=== PATIENT | female | born 1955 | race Caucasian/White ===

== ENCOUNTER 2024-01-25 19:45 | Inpatient (IN) | payer MEDICARE ==
[~2024-01-25] VITALS: Ht 149.9 cm; Wt 35.8 kg
[2024-01-25] MEDS ORDERED: ACET-2154 PO (20:12)
[2024-01-25] MEDS ORDERED: TEMA7.5C PO (20:12)
[2024-01-25] MEDS ORDERED: CLON0.5T4 PO (20:12)
[2024-01-25] MEDS ORDERED: BISA10SU61 RC (20:12)
[2024-01-25] MEDS ORDERED: POTA10CA43 PO (20:12)
[2024-01-25] MEDS ORDERED: FURO40TA5 PO (20:12)
[2024-01-25] MEDS ORDERED: CALC-343 PO (20:12)
[2024-01-25] MEDS ORDERED: DOCU-141 PO (20:12)
[2024-01-25] MEDS ORDERED: [UNRECOGNIZED DRUG - OTHER] PO (20:12)
[2024-01-25] MEDS ORDERED: NA P133E RC (20:12)
[2024-01-25] MEDS ORDERED: CRAN450T9 PO (20:12)
[2024-01-25] MEDS ORDERED: FLUV150C2 PO (20:12)
[2024-01-25] MEDS ORDERED: MAG30ORA PO (20:12)
[2024-01-25] MEDS ORDERED: INSU3INS6 SQ (20:12)
[2024-01-25] MEDS ORDERED: QUET25TA PO (20:12)
[2024-01-25] MEDS ORDERED: MULT-225 PO (20:12)
[2024-01-25] MEDS ORDERED: MEGE20TA3 PO (20:12)
[2024-01-25] MEDS ORDERED: MAGN400O6 PO (20:12)
[2024-01-25] MEDS: IV NORMAL SALINE 500 ML BAG IV ONE ×2 (20:17→20:45)
[2024-01-25 20:19] LABS: BASOPHILS # (AUTO) 0.1 K/UL (0.0-0.2); BASOPHILS % (AUTO) 0.6 % (0.0-2.0); EOSINOPHILS % (AUTO) 0.1 % (0.0-7.0); HEMOGLOBIN 14.5 g/dL (10.9-14.3); LYMPHOCYTES # (AUTO) 2.5 K/uL (0.8-4.8); MEAN CORPUSCULAR HEMOGLOBIN 32.2 uug (24.7-32.8); MEAN CORPUSCULAR HGB CONC 32 g/dL (32.3-35.6); MEAN CORPUSCULAR VOLUME 100.3 fL (75.5-95.3); MONOCYTES # (AUTO) 0.6 K/uL (0.1-1.30); MONOCYTES % (AUTO) 4.6 % (0.0-11.0); NEUTROPHILS # (AUTO) 9.5 K/uL (1.8-8.9); NEUTROPHILS % (AUTO) 74.7 % (38.5-71.5); PLATELET COUNT (AUTO) 480 K/uL (179-408); RED BLOOD CELL COUNT(AUTO) 4.48 MIL/uL (3.63-4.92); RED CELL DISTRIBUTION WIDTH 15.6 % (12.3-17.7); WHITE BLOOD COUNT (AUTO) 12.7 K/uL (3.8-11.8)
[2024-01-25 20:22] LABS: DIFFERENTIAL COMMENT 1
[2024-01-25 20:27] LABS: ALBUMIN 3.6 g/dL (3.4-5.0); BILIRUBIN,TOTAL 0.4 mg/dL (0.2-1.0); CALCIUM 11.4 mg/dL (8.5-10.1); CREATININE 1.7 mg/dL (0.6-1.3); MAGNESIUM 2.8 mg/dL (1.8-2.4); POTASSIUM 3.2 mmol/L (3.5-5.1); TOTAL PROTEIN, SERUM 8.4 g/dL (6.4-8.2)
[2024-01-25] MEDS ORDERED: IV D5/ 0.9% NACL 1,000 ML IV PRN (20:45)
[2024-01-25] MEDS: MAGNESIUM SULFATE/D5W 100 ML IV SCH (20:45)
[2024-01-25] MEDS ORDERED: INSULIN REGULAR, HUMAN 100 UNIT in IV NORMAL SALINE 100 ML IV PRN (20:45)
[2024-01-25] MEDS ORDERED: IV 0.9% SODIUM CHLORID+ 20 KCL 1,000 ML IV PRN (20:45)
[2024-01-25] MEDS ORDERED: IV NS 1000 ML 1,000 ML IV PRN (20:45)
[2024-01-25 20:54] LABS: SITE, VBG VBG - N/A; VBG AaDO2 95.4 mmHg; VBG HCO3 12.9 mmol/L (22-27); VBG MetHb 0.1 % (0.0-0.5); VBG PCO2 24.6 mmHg (38.0-51.0); VBG PH 7.336 (7.310-7.450); VBG PO2 79.9 mmHg (25.0-35.0); VBG TOTAL HEMOGLOBIN 14.2 G/dL (12.0-16.0)
[2024-01-25 21:18] LABS: CALCIUM 9.8 mg/dL (8.5-10.1); CREATININE 1.6 mg/dL (0.6-1.3); MAGNESIUM 2.4 mg/dL (1.8-2.4); PHOSPHOROUS 4.7 mg/dL (2.5-4.9)
[2024-01-25] MEDS ORDERED: MAGNESIUM HYDROXIDE 30 ML LIQUID UDC PO PRN (21:45)
[2024-01-25] MEDS ORDERED: IV 1/2NS 1000 ML 1,000 ML IV PRN (21:45)
[2024-01-25] MEDS ORDERED: REMEDY ESSENTIAL ZINC PASTE 113 GM TP PRN (21:45)
[2024-01-25] MEDS ORDERED: HYDROCODONE/APAP 5-325MG TABLET PO PRN (21:45)
[2024-01-25 22:46] LABS: *BILIRUBIN,URIN NEGATIVE (NEGATIVE); *CLARITY,URINE CLEAR (CLEAR); *COLOR,URINE YELLOW (YELLOW); *KETONES,URINE 1+ (NEGATIVE); *PROTEIN,URINE 1+ (NEGATIVE); *UROBILINOGEN,URINE 0.2 E.U./dl (NORMAL); LEUKOCYTE ESTERASE ,URINE NEGATIVE (NEGATIVE); NITRITE, URINE NEGATIVE (NEGATIVE); PH,URINE 5.5 (5.0-8.0); UGLUCOSE 2+ (NEGATIVE)
[2024-01-25 22:48] LABS: *BLOOD, URINE TRACE (NEGATIVE)
[2024-01-25 23:28] LABS: CALCIUM 9.9 mg/dL (8.5-10.1); CREATININE 1.4 mg/dL (0.6-1.3); MAGNESIUM 2.4 mg/dL (1.8-2.4); PHOSPHOROUS 4.2 mg/dL (2.5-4.9); POTASSIUM 3.1 mmol/L (3.5-5.1)
[2024-01-26] VITALS (33 sets, daily range): BP systolic 103–158; BP diastolic 68–101; TEMP 98–100; O2SAT 92–98
[2024-01-26 00:25] LABS: BACTERIA,URINE NONE SEEN /HPF (NONE SEEN); MUCUS,URINE MODERATE /LPF (0-FEW); RBC,URINE 0-3 /HPF (0-3); SQUAMOUS EPITHELIAL CELL,UR FEW /HPF (NONE SEEN); URIC ACID CRYSTALS,URINE MANY /HPF (NONE SEEN); WBC,URINE 0-3 /HPF (0-3)
[2024-01-26] MEDS ORDERED: INSULIN REGULAR, HUMAN 300 UNIT/3 ML VIAL ONE (00:32)
[2024-01-26] MEDS: INSULIN REGULAR, HUMAN 100 UNIT in IV NORMAL SALINE 99 ML IV PRN (01:00)
[2024-01-26] MEDS: IV NS + KCL 40 MEQ 1000 ML BAG 1,000 ML IV PRN (01:18)
[2024-01-26] MEDS: SODIUM BICARBONATE 8.4% 150 MEQ in IV D5W 1000ML 1,000 ML IV PRN (01:18)
[2024-01-26] MEDS: LORAZEPAM 2 MG/1 ML VIAL IV PRN (01:39)
[2024-01-26] MEDS: PANTOPRAZOLE SODIUM 40 MG VIAL IV SCH (01:49)
[2024-01-26] MEDS ORDERED: POTASSIUM CHLORIDE 150 ML ONE (01:55)
[2024-01-26] MEDS ORDERED: MAGNESIUM SULFATE/D5W 200 ML ONE (01:55)
[2024-01-26 02:01] LABS: CALCIUM 9.7 mg/dL (8.5-10.1); CREATININE 0.8 mg/dL (0.6-1.3); POTASSIUM 3.1 mmol/L (3.5-5.1)
[2024-01-26] MEDS ORDERED: IV 1/2NS 1000 ML 1,000 ML IV PRN (02:15)
[2024-01-26] MEDS: POTASSIUM CHLORIDE 50 ML IV SCH ×2 (02:28→06:48)
[2024-01-26] MEDS: IV D5 1/2 NS 1000 ML 1,000 ML IV PRN (02:52)
[2024-01-26] MEDS: ACETAMINOPHEN 325 MG TABLET PO PRN (03:35)
[2024-01-26] MEDS: BLOOD SUGAR DIAGNOSTIC 1 EACH STRIP VI SCH ×3 (04:29→12:17)
[2024-01-26 05:09] LABS: BASOPHILS # (AUTO) 0.1 K/UL (0.0-0.2); BASOPHILS % (AUTO) 0.6 % (0.0-2.0); HEMATOCRIT 36.8 % (31.2-41.9); LYMPHOCYTES # (AUTO) 2.5 K/uL (0.8-4.8); LYMPHOCYTES % (AUTO) 19.2 % (20.5-51.5); MEAN CORPUSCULAR HEMOGLOBIN 32.2 uug (24.7-32.8); MEAN CORPUSCULAR HGB CONC 33 g/dL (32.3-35.6); MEAN CORPUSCULAR VOLUME 99.1 fL (75.5-95.3); MONOCYTES % (AUTO) 7.7 % (0.0-11.0); NEUTROPHILS # (AUTO) 9.6 K/uL (1.8-8.9); NEUTROPHILS % (AUTO) 72.5 % (38.5-71.5); PLATELET COUNT (AUTO) 359 K/uL (179-408); RED BLOOD CELL COUNT(AUTO) 3.71 MIL/uL (3.63-4.92); RED CELL DISTRIBUTION WIDTH 15.1 % (12.3-17.7); WHITE BLOOD COUNT (AUTO) 13.2 K/uL (3.8-11.8)
[2024-01-26 05:51] LABS: DIFFERENTIAL COMMENT 1
[2024-01-26 06:08] LABS: CALCIUM 9.4 mg/dL (8.5-10.1); PHOSPHOROUS 2.7 mg/dL (2.5-4.9)
[2024-01-26 06:16] LABS: CREATININE 0.7 mg/dL (0.6-1.3); POTASSIUM 3.3 mmol/L (3.5-5.1)
[2024-01-26] MEDS ORDERED: INSULIN REGULAR, HUMAN 300 UNIT/3 ML VIAL SQ PRN ×3 (06:30→10:45)
[2024-01-26] MEDS ORDERED: DEXTROSE 50% 50 ML DISP.SYRIN IV PRN ×3 (06:30→10:45)
[2024-01-26] MEDS: INSULIN REGULAR, HUMAN 300 UNITS/3 ML VIAL SQ PRN (07:50)
[2024-01-26] MEDS: HEPARIN SODIUM,PORCINE 5,000 UNITS/ML VIAL SQ SCH (08:49)
[2024-01-26 09:18] LABS: CALCIUM 8.4 mg/dL (8.5-10.1); CREATININE 0.7 mg/dL (0.6-1.3); POTASSIUM 3.9 mmol/L (3.5-5.1)
[2024-01-26] MEDS ORDERED: AMIN960L24 PO (09:48)
[2024-01-26] MEDS ORDERED: INSU100V28 SQ (09:48)
[2024-01-26] MEDS ORDERED: CALC500T88 PO (09:48)
[2024-01-26] MEDS ORDERED: ACET-2605 PO (09:48)
[2024-01-26] MEDS ORDERED: GLUC1KIT IM (09:48)
[2024-01-26] MEDS: INSULIN GLARGINE,HUM 300 UNITS/3 ML CARTRIDGE SQ ONE (10:04)
[2024-01-26] MEDS ORDERED: ACETAMINOPHEN 325 MG TABLET-SA PATIENTS-PAIN ONLY PO PRN (10:30)
[2024-01-26] MEDS ORDERED: MAG HYDROX/AL HYDROX/SIMETH 30 ML LIQUID UDC PO PRN (10:30)
[2024-01-26] MEDS ORDERED: ACETAMINOPHEN ES 500 MG TABLET- SA PATIENTS-PAIN ONLY PO PRN (10:30)
[2024-01-26] MEDS ORDERED: BISACODYL 10 MG SUPP.RECT RC PRN (10:30)
[2024-01-26] MEDS ORDERED: MAGNESIUM HYDROXIDE 30 ML LIQUID UDC PO PRN (10:30)
[2024-01-26] MEDS ORDERED: METOCLOPRAMIDE HCL 5 MG TABLET PO SCH (10:45)
[2024-01-26] MEDS ORDERED: CLONAZEPAM 0.5 MG TABLET PO PRN (10:45)
[2024-01-26] MEDS ORDERED: ACETAMINOPHEN 500 MG TABLET PO PRN (11:15)
[2024-01-26] MEDS ORDERED: BLOOD SUGAR DIAGNOSTIC 1 EACH STRIP VI SCH ×2 (11:30→12:00)
[2024-01-26] MEDS: PROTEIN SUPPLEMENT (PROSTAT) 30 ML LIQUID PO SCH (11:30)
[2024-01-26 12:09] LABS: THYROID STIMULATING HORMONE 0.468 mIU/mL (0.358-3.740)
[2024-01-26 12:23] LABS: THYROID STIMULATING HORMONE 0.468 mIU/mL (0.358-3.740)
[2024-01-26] MEDS: INSULIN REGULAR, HUMAN 300 UNIT/3 ML VIAL SQ PRN (12:57)
[2024-01-26] MEDS: MINERAL OIL FLEET ENEMA 133 ML BOTTLE RC ONE (13:00)
[2024-01-26] MEDS ORDERED: METOCLOPRAMIDE HCL 5 MG TABLET PO PRN (13:00)
[2024-01-26] MEDS: LACTULOSE 20 G/30 ML LIQUID UDC PO ONE (13:02)
[2024-01-26] MEDS: MEGESTROL ACETATE 20 MG TABLET PO SCH (13:03)
[2024-01-26] MEDS: FLEET ENEMA 133 ML BOTTLE RC PRN (13:03)
[2024-01-26] MEDS: MULTIVITAMINS,THERAPEUTIC TABLET PO SCH (13:04)
[2024-01-26] MEDS: DOCUSATE SODIUM 100 MG CAPSULE PO SCH (13:04)
[2024-01-26] MEDS: GLUCERNA SHAKE 237 ML CAN PO SCH (13:15)
[2024-01-26] MEDS: CLONAZEPAM 0.5 MG TABLET PO PRN (14:35)
[2024-01-26] MEDS ORDERED: INSULIN LISPRO 300 UNIT/3 ML VIAL SQ SCH ×2 (17:00)
[2024-01-26] MEDS: INSULIN REGULAR, HUMAN 300 UNITS/3 ML VIAL SQ SCH (17:58)
[2024-01-26] MEDS: FLUVOXAMINE MALEATE 50 MG TABLET PO SCH (20:13)
[2024-01-26] MEDS: CALCIUM CARBONATE 500 MG TABLET PO SCH (20:15)
[2024-01-26] MEDS: SENNOSIDES 1 TABLET PO SCH (20:15)
[2024-01-26] MEDS: QUETIAPINE FUMARATE 25 MG TABLET PO SCH (20:16)
[2024-01-26] MEDS: INSULIN GLARGINE,HUM 300 UNITS/3 ML CARTRIDGE SQ SCH (20:37)
[2024-01-27] VITALS (13 sets, daily range): BP systolic 104–151; BP diastolic 57–96; TEMP 98–99; O2SAT 92–97
[2024-01-27] MEDS ORDERED: LORAZEPAM 2 MG/1 ML VIAL IV PRN (02:00)
[2024-01-27 05:14] LABS: CALCIUM 8.2 mg/dL (8.5-10.1); CARBON DIOXIDE 25 mmol/L (21-32); CHLORIDE 110 mmol/L (98-107); CREATININE 0.4 mg/dL (0.6-1.3); GLUCOSE 91 mg/dL (74-106); SODIUM SERUM 145 mmol/L (136-145); UREA NITROGEN, BLOOD 29 mg/dL (7-18)
[2024-01-27] MEDS: MIRALAX 17 GM POWD.PACK PO SCH (08:51)
[2024-01-27] MEDS: DIVALPROEX 250 MG TABLET.DR PO SCH (09:19)
[2024-01-27] MEDS: QUETIAPINE FUMARATE 25 MG TABLET PO SCH (09:19)
[2024-01-27] MEDS ORDERED: INSULIN GLARGINE,HUM 300 UNITS/3 ML CARTRIDGE SQ ONE (09:30)
[2024-01-27] MEDS: POTASSIUM CHLORIDE 10 MEQ TAB.PRT.SR PO SCH (10:00)
[2024-01-27] MEDS: GLUCERNA SHAKE 237 ML CAN PO SCH (10:02)
[2024-01-27 10:04] LABS: CREATININE 0.6 mg/dL (0.6-1.3); POTASSIUM 3.5 mmol/L (3.5-5.1)
[2024-01-27] MEDS ORDERED: INSULIN GLARGINE,HUM 300 UNITS/3 ML CARTRIDGE SQ SCH (21:00)
[2024-01-28] VITALS (9 sets, daily range): BP systolic 117–160; BP diastolic 70–92; TEMP 98.3–99.2; O2SAT 93–97
[2024-01-28] MEDS: PANTOPRAZOLE SODIUM 40 MG TABLET.DR PO SCH (06:19)
[2024-01-28 07:01] LABS: CALCIUM 8.6 mg/dL (8.5-10.1); CREATININE 0.5 mg/dL (0.6-1.3); POTASSIUM 4.2 mmol/L (3.5-5.1)
[2024-01-28] MEDS ORDERED: DIATR MEGLU/DIATRIZOATE SODIUM 30 ML BOTTLE ONE (10:39)
[2024-01-28] MEDS: GLUCERNA SHAKE 237 ML CAN PO SCH (12:00)
[2024-01-29 06:00] VITALS: BP 143/68; TEMP 98.5; O2SAT 97
[2024-01-29 07:17] LABS: BASOPHILS # (AUTO) 0.1 K/UL (0.0-0.2); EOSINOPHILS # (AUTO) 0.3 K/uL (0.0-0.7); EOSINOPHILS % (AUTO) 2.9 % (0.0-7.0); HEMATOCRIT 36.1 % (31.2-41.9); HEMOGLOBIN 12.1 g/dL (10.9-14.3); LYMPHOCYTES # (AUTO) 2.4 K/uL (0.8-4.8); LYMPHOCYTES % (AUTO) 27.5 % (20.5-51.5); MEAN CORPUSCULAR HEMOGLOBIN 32.7 uug (24.7-32.8); MEAN CORPUSCULAR HGB CONC 33 g/dL (32.3-35.6); MEAN CORPUSCULAR VOLUME 97.9 fL (75.5-95.3); MONOCYTES # (AUTO) 0.6 K/uL (0.1-1.30); MONOCYTES % (AUTO) 6.7 % (0.0-11.0); NEUTROPHILS # (AUTO) 5.4 K/uL (1.8-8.9); NEUTROPHILS % (AUTO) 61.9 % (38.5-71.5); PLATELET COUNT (AUTO) 268 K/uL (179-408); RED BLOOD CELL COUNT(AUTO) 3.69 MIL/uL (3.63-4.92); RED CELL DISTRIBUTION WIDTH 14.4 % (12.3-17.7); WHITE BLOOD COUNT (AUTO) 8.8 K/uL (3.8-11.8)
[2024-01-29 07:34] LABS: DIFFERENTIAL COMMENT 1
[2024-01-29 07:56] LABS: CALCIUM 8.9 mg/dL (8.5-10.1); CREATININE 0.6 mg/dL (0.6-1.3); POTASSIUM 4.3 mmol/L (3.5-5.1)
[2024-01-29 11:14] VITALS: BP 116/74; TEMP 98.2; O2SAT 96
[2024-01-29] MEDS: QUETIAPINE FUMARATE 25 MG TABLET PO PRN (14:25)
[2024-01-29 16:04] VITALS: BP 133/81; TEMP 97.8; O2SAT 96
[2024-01-29 20:06] VITALS: BP 111/76; TEMP 97.8; O2SAT 96
[2024-01-29] MEDS: MIRTAZAPINE 15 MG TABLET PO SCH (20:40)
[2024-01-30 04:57] VITALS: BP 119/80; TEMP 97.6; O2SAT 100
[2024-01-30 07:51] LABS: BASOPHILS # (AUTO) 0.1 K/UL (0.0-0.2); BASOPHILS % (AUTO) 0.7 % (0.0-2.0); EOSINOPHILS # (AUTO) 0.3 K/uL (0.0-0.7); EOSINOPHILS % (AUTO) 2.5 % (0.0-7.0); HEMATOCRIT 38.1 % (31.2-41.9); HEMOGLOBIN 12.7 g/dL (10.9-14.3); LYMPHOCYTES # (AUTO) 3.2 K/uL (0.8-4.8); LYMPHOCYTES % (AUTO) 30.9 % (20.5-51.5); MEAN CORPUSCULAR HEMOGLOBIN 32.7 uug (24.7-32.8); MEAN CORPUSCULAR HGB CONC 33 g/dL (32.3-35.6); MEAN CORPUSCULAR VOLUME 97.9 fL (75.5-95.3); MONOCYTES # (AUTO) 0.8 K/uL (0.1-1.30); MONOCYTES % (AUTO) 7.4 % (0.0-11.0); NEUTROPHILS % (AUTO) 58.5 % (38.5-71.5); PLATELET COUNT (AUTO) 292 K/uL (179-408); RED BLOOD CELL COUNT(AUTO) 3.89 MIL/uL (3.63-4.92); RED CELL DISTRIBUTION WIDTH 14.6 % (12.3-17.7); WHITE BLOOD COUNT (AUTO) 10.2 K/uL (3.8-11.8)
[2024-01-30 07:56] LABS: DIFFERENTIAL COMMENT 1
[2024-01-30 08:00] VITALS: BP 140/91; TEMP 97.8; O2SAT 96
[2024-01-30 08:22] LABS: CALCIUM 8.9 mg/dL (8.5-10.1); CREATININE 0.6 mg/dL (0.6-1.3); POTASSIUM 4.4 mmol/L (3.5-5.1)
[2024-01-30] MEDS ORDERED: IV NORMAL SALINE 250 ML IV ONE (10:58)
[2024-01-30] MEDS ORDERED: IOHEXOL 300MG/ML 100 ML INFUS..BTL ONE (10:58)
[2024-01-30] MEDS ORDERED: SWABABLE VALVE TRANSFER SET EA MC ONE (10:58)
[2024-01-30 12:00] VITALS: BP 131/86; TEMP 97.7; O2SAT 97
[2024-01-30 15:18] LABS: BASOPHILS % (MANUAL) 1 % (0-2); EOSINOPHILS % (MANUAL) 2 % (0-8); LYMPHOCYTES % (MANUAL) 31 % (20-40); METAMYELOCYTES % 2 % (0-1); MONOCYTES % (MANUAL) 9 % (2-10); NEUTROPHILS % (MANUAL) 55 % (42-75); PLATELET ESTIMATE ADEQUATE
[2024-01-30 15:19] LABS: ANISOCYTOSIS 1+
[2024-01-30 16:13] VITALS: BP 137/86; TEMP 97.8; O2SAT 96
[2024-01-30] MEDS: ONDANSETRON 4 MG/2 ML VIAL IV PRN (18:28)
[2024-01-30 20:25] VITALS: BP 107/69; TEMP 98.5; O2SAT 97
[2024-01-30] MEDS: QUETIAPINE FUMARATE 25 MG TABLET PO SCH (20:40)
[2024-01-30] MEDS: INSULIN GLARGINE,HUM 300 UNITS/3 ML CARTRIDGE SQ SCH (21:05)
[2024-01-31 06:14] VITALS: BP 118/69; TEMP 98.4; O2SAT 98
[2024-01-31] MEDS: DEXTROSE 50% 50 ML DISP.SYRIN IV PRN (06:28)
[2024-01-31 07:43] LABS: CALCIUM 8.6 mg/dL (8.5-10.1); CREATININE 0.7 mg/dL (0.6-1.3); POTASSIUM 4.1 mmol/L (3.5-5.1)
[2024-01-31 08:07] LABS: BASOPHILS # (AUTO) 0.1 K/UL (0.0-0.2); BASOPHILS % (AUTO) 0.5 % (0.0-2.0); EOSINOPHILS # (AUTO) 0.2 K/uL (0.0-0.7); EOSINOPHILS % (AUTO) 1.7 % (0.0-7.0); HEMATOCRIT 36.5 % (31.2-41.9); LYMPHOCYTES # (AUTO) 2.5 K/uL (0.8-4.8); LYMPHOCYTES % (AUTO) 22.1 % (20.5-51.5); MEAN CORPUSCULAR HEMOGLOBIN 32.4 uug (24.7-32.8); MEAN CORPUSCULAR HGB CONC 33 g/dL (32.3-35.6); MEAN CORPUSCULAR VOLUME 98.4 fL (75.5-95.3); MONOCYTES # (AUTO) 0.7 K/uL (0.1-1.30); NEUTROPHILS % (AUTO) 69.7 % (38.5-71.5); PLATELET COUNT (AUTO) 332 K/uL (179-408); RED BLOOD CELL COUNT(AUTO) 3.71 MIL/uL (3.63-4.92); RED CELL DISTRIBUTION WIDTH 14.5 % (12.3-17.7); WHITE BLOOD COUNT (AUTO) 11.4 K/uL (3.8-11.8)
[2024-01-31 08:13] LABS: DIFFERENTIAL COMMENT 1
[2024-01-31] MEDS: LORAZEPAM 2 MG/1 ML VIAL IV ONE (10:34)
[2024-01-31] MEDS ORDERED: INSU100V28 SQ (14:45)
[2024-01-31] MEDS ORDERED: Insulin Glargine,Hum SQ (14:45)
[2024-01-31] MEDS ORDERED: QUET25TA36 PO ×2 (14:45)
[2024-01-31] MEDS ORDERED: MIRT-93 PO (14:45)
[2024-01-31] MEDS ORDERED: POLY17PO4 PO (14:45)
[2024-01-31] MEDS ORDERED: PANT40TA49 PO (14:45)
[2024-01-31] MEDS ORDERED: NUT.237L36 PO (14:45)
[2024-01-31] MEDS ORDERED: DIVA250T4 PO (14:45)
[2024-01-31] MEDS ORDERED: SENN-175 PO (14:45)
[2024-01-31] MEDS ORDERED: GADOTERATE MEGLUMINE 5 MMOL/10 ML VIAL IV ONE (15:12)
[2024-01-31 15:32] LABS: BAND % (MANUAL) 1 % (0-10); EOSINOPHILS % (MANUAL) 2 % (0-8); LYMPHOCYTES % (MANUAL) 20 % (20-40); METAMYELOCYTES % 2 % (0-1); MONOCYTES % (MANUAL) 4 % (2-10); NEUTROPHILS % (MANUAL) 71 % (42-75); PLATELET ESTIMATE ADEQUATE
[2024-01-31 16:15] LABS: ANISOCYTOSIS 1+
[2024-01-31 16:20] VITALS: BP 106/70; TEMP 98.6; O2SAT 96
[2024-01-31] MEDS: INSULIN REGULAR, HUMAN 300 UNIT/3 ML VIAL SQ ONE (18:19)
[2024-01-31] MEDS: IV NORMAL SALINE 500 ML BAG IV ONE (18:19)
== END 2024-01-31 19:28 | DRG 637 ==
LOC: ER 19:56 → CCU 22:20 → TELE3 01-27 06:09 → MEDSURG3 01-28 09:15
PROVIDERS: ADMIT Nurse Practitioner Acute Care; ATTEND Nurse Practitioner Acute Care
DX: E10.10 Type 1 diabetes mellitus with ketoacidosis without coma (principal); E43 Unspecified severe protein-calorie malnutrition; N17.0 Acute kidney failure with tubular necrosis; G93.41 Metabolic encephalopathy; S22.43XA Multiple fractures of ribs, bilateral, initial encounter for closed fracture; E87.0 Hyperosmolality and hypernatremia; R64 Cachexia; F20.0 Paranoid schizophrenia; Z68.1 Body mass index [BMI] 19.9 or less, adult; F03.92 Unspecified dementia, unspecified severity, with psychotic disturbance; F03.93 Unspecified dementia, unspecified severity, with mood disturbance; E86.1 Hypovolemia; E86.0 Dehydration; E87.6 Hypokalemia; F42.9 Obsessive-compulsive disorder, unspecified; R62.7 Adult failure to thrive; E10.43 Type 1 diabetes mellitus with diabetic autonomic (poly)neuropathy; K31.84 Gastroparesis; K76.9 Liver disease, unspecified; K59.00 Constipation, unspecified; Z79.4 Long term (current) use of insulin; Z79.899 Other long term (current) drug therapy; D75.839 Thrombocytosis, unspecified; E83.52 Hypercalcemia; G93.89 Other specified disorders of brain; X58.XXXA Exposure to other specified factors, initial encounter; Y92.89 Other specified places as the place of occurrence of the external cause; Z86.73 Personal history of transient ischemic attack (TIA), and cerebral infarction without residual deficits; D72.829 Elevated white blood cell count, unspecified; C80.1 Malignant (primary) neoplasm, unspecified; R00.0 Tachycardia, unspecified
CPT/HCPCS: 36415; 36600; 70030-TC; 70450; 71045; 71260; 74250; 76770; 82378; 82803; 83690; 83735; 83921; 84100; 84443; 85025; 87040; 93005; A4606; A4663; A6209; A6213; A9575; G0378; J1644; J1815; J2060; J2405; J2470; J3475; J3480; J3490; J7040; Q9963; Q9967